=== PATIENT | male | born 1990 | race African-American/Black ===

== ENCOUNTER 2017-05-12 17:17 | Emergency (ER) | payer SELFPAY ==
[~2017-05-12] VITALS: Ht 170.2 cm; Wt 69.6 kg
[2017-05-12 17:25] VITALS: BP 127/76
[2017-05-12] MEDS ORDERED: DIPH,PERTUSS(ACELL),TET VAC/PF 0.5 ML IM-VACC ONE ×2 (17:53→18:00)
[2017-05-12] MEDS ORDERED: LIDOCAINE 1%, 10ML INFIL ONE (18:00)
== END 2017-05-12 18:42 | disposition home or self-care (01) ==
LOC: ED 18:37
DX: L02.414 Cutaneous abscess of left upper limb (principal)
CPT/HCPCS: 90471; 90715